=== PATIENT | male | born 1995 | race Two or more races ===

== ENCOUNTER 2016-05-29 19:24 | Emergency (ER) | payer BC, MEDICAID, OTHER ==
[~2016-05-29] VITALS: Ht 165.1 cm; Wt 57.3 kg
[2016-05-29 19:25] VITALS: BP 149/82
[2016-05-29 20:06] LABS: HEMOGLOBIN 14.7 g/dL (13.7-18.0)
[2016-05-29 20:13] LABS: ASPARTATE AMINO TRANSFERASE 20 U/L (15-37); BLOOD UREA NITROGEN 15 mg/dL (7-18)
== END 2016-05-29 22:09 | disposition home or self-care (01) ==
LOC: ED 22:03
DX: R10.30 Lower abdominal pain, unspecified (principal); F12.10 Cannabis abuse, uncomplicated
CPT/HCPCS: 10060; 36415; 74020; 80053; 81001; 83690; 85025; 99152